=== PATIENT | male | born 1980 | race Caucasian/White ===

== ENCOUNTER 2018-12-10 12:01 | Emergency (ER) | payer OTHER ==
[2018-12-10] MEDS ORDERED: Acetaminophen/oxyCODONE 325-5 MG Tab ONE (14:00)
[2018-12-10] MEDS ORDERED: Cyclobenzaprine 10 MG Tab ONE (14:00)
[2018-12-10] MEDS ORDERED: Ketorolac 60 MG/2 ML SDV ONE (14:17)
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
--- NOTE | 2018-12-10 17:13 | CT ---
DATE OF SERVICE: 12/10/18 CLINICAL DATA: [facility] THORACIC SPINE CT: Multislice axial acquisition was performed. Axial images and sagittal and coronal reformations are reviewed. The vertebral bodies are of average height and in good alignment. No acute fracture or dislocation. No lytic or blastic bone lesions. No displaced rib fractures. The visualized lungs are clear. The soft tissues are unremarkable. IMPRESSION: No acute abnormalities. [id number] [facility]
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
== END 2018-12-10 16:20 | disposition home or self-care (01) ==
LOC: LB.ED 12:01
DX: M54.2 Cervicalgia (principal); Z79.899 Other long term (current) drug therapy; V89.2XXA Person injured in unspecified motor-vehicle accident, traffic, initial encounter
CPT/HCPCS: 71045; 72125; 72128; 72131; 73030-RT; 99284-25; A0425; A0429; A9270-GY; J1885